=== PATIENT | female | born 1990 | race Hispanic/Latino ===

== ENCOUNTER 2018-03-22 14:30 | Emergency (ER) | payer SELFPAY ==
[~2018-03-22] VITALS: Ht 149.9 cm; Wt 49.9 kg
[2018-03-22] MEDS ORDERED: LORAZEPAM 1 MG TAB PO ONE (14:45)
--- NOTE | 2018-03-22 15:41 | NUR ---
Pt reports feeling much better, states she no longer is feeling anxious, having the heat sensations, or SOB. Reports the tightness to abdomen is gone as well. Pt resting comfortably. Vitals stable.
== END 2018-03-22 15:57 | disposition home or self-care (01) ==
LOC: FSED 14:30
DX: F41.1 Generalized anxiety disorder (principal)
CPT/HCPCS: 99283

== ENCOUNTER 2018-03-25 20:32 | Emergency (ER) | payer SELFPAY ==
[~2018-03-25] VITALS: Ht 149.9 cm; Wt 49.9 kg
== END 2018-03-25 21:21 | disposition left against medical advice (07) ==
LOC: ER 20:32
DX: F41.9 Anxiety disorder, unspecified (principal)